=== PATIENT | female | born 1970 ===

== ENCOUNTER 2025-04-13 05:13 | Day surgery (SDC) | payer OTHER ==
[2025-04-13] MEDS ORDERED: DIPHENHYDRAMINE HCL 50 MG/ML VIAL 1ML IV ONE ×2 (10:45)
[2025-04-13] MEDS ORDERED: MIDAZOLAM HCL 2 MG/2 ML VIAL IV ONE (10:45)
[2025-04-13] MEDS ORDERED: fentaNYL CITRATE 50 MCG/ML AMPUL IV PUSH ONE (10:45)
== END 2025-04-13 11:55 | disposition home or self-care (01) ==
LOC: AMB-ENDOS 05:13
PROVIDERS: ATTEND Internal Medicine
DX: K63.5 Polyp of colon (principal); D12.5 Benign neoplasm of sigmoid colon; Z86.0101 Personal history of adenomatous and serrated colon polyps